=== PATIENT | female | born 1985 | race African-American/Black ===

== ENCOUNTER 2022-03-08 04:10 | Inpatient (IN) | payer OTHER ==
[2022-03-04 15:33] VITALS: BMI 23.8
[2022-03-08] MEDS ORDERED: CEFAZOLIN 2 GM in DEXTROSE 5%-WATER 100 ML IVPB ONE (06:30)
[2022-03-08 06:49] LABS: URINE APPEARANCE CLEAR; URINE BILIRUBIN NEGATIVE (NEGATIVE); URINE COLOR YELLOW; URINE GLUCOSE (UA) NEGATIVE (NEGATIVE); URINE KETONE NEGATIVE (NEGATIVE); URINE LEUK ESTERASE NEGATIVE (NEGATIVE); URINE NITRITE NEGATIVE (NEGATIVE); URINE PROTEIN NEGATIVE (NEGATIVE); URINE UROBILINOGEN 0.2 mg/dL (0.2-1.0)
[2022-03-08] MEDS ORDERED: ceFAZolin SODIUM 1 GM VIAL ONE (06:49)
[2022-03-08] MEDS ORDERED: MIDAZOLAM HCL 2 MG/2 ML SINGLE DOSE VIAL ONE (07:31)
[2022-03-08] MEDS ORDERED: PROPOFOL 20 ML ONE (07:31)
[2022-03-08] MEDS ORDERED: ROCURONIUM BROMIDE 50 MG/5 ML SYRINGE ONE (07:31)
[2022-03-08] MEDS ORDERED: BUPIVACAINE LIPOSOME/PF (EXPAREL) 266 MG/20 ML VIAL ONE (07:35)
[2022-03-08] MEDS ORDERED: BUPIVACAINE HCL/PF 0.25% (2.5MG/ML) 10 ML VIAL ONE (07:35)
[2022-03-08] MEDS ORDERED: ceFAZolin SODIUM 1 GM VIAL IVPB ONE (08:30)
[2022-03-08] MEDS ORDERED: ONDANSETRON 4 MG/2 ML VIAL ONE ×3 (08:49→09:45)
[2022-03-08] MEDS ORDERED: DEXAMETHASONE SOD PHOSPHATE 4 MG/1 ML VIAL ONE (08:49)
[2022-03-08] MEDS ORDERED: NEOSTIGMINE METHYLSULFATE 0.5 MG/ML - 10 ML MDV ONE (09:46)
[2022-03-08] MEDS ORDERED: ACETAMINOPHEN INJECTION 100 ML IVPB ONE (09:46)
[2022-03-08] MEDS ORDERED: GLYCOPYRROLATE 0.2 MG/1 ML VIAL ONE (09:46)
[2022-03-08] MEDS ORDERED: DOCUSATE SODIUM 100 MG CAPSULE (FP) PO PRN (09:57)
[2022-03-08] MEDS ORDERED: ONDANSETRON 4 MG/2 ML VIAL IVPUSH PRN ×2 (09:57→10:19)
[2022-03-08] MEDS ORDERED: BISACODYL 5 MG TABLET.DR (FP) PO PRN (09:57)
[2022-03-08] MEDS ORDERED: LACTATED RINGERS SOLUTION 1,000 ML IV SCH (10:30)
[2022-03-08] MEDS: SODIUM CHLORIDE 1,000 ML IV SCH ×2 (11:40→21:17)
[2022-03-08] MEDS: oxyCODONE HCL 5 MG TABLET PO PRN ×2 (13:44→19:43)
[2022-03-08] MEDS: CEFAZOLIN 1 GM in DEXTROSE 5%-WATER - 50 ML IVPB SCH ×2 (15:59→23:49)
[2022-03-08] MEDS: IBUPROFEN 800 MG/8 ML IJ IVPB SCH (16:00)
[2022-03-08] MEDS: SIMETHICONE 80 MG TAB.CHEW (FP) PO PRN (19:43)
[2022-03-08 19:47] LABS: HEMATOCRIT 30.6 % (32.4-45.2); HEMOGLOBIN 9.4 GM/dL (10.7-15.3); MCH 24.4 pg (25.7-33.7); MCHC 30.6 g/dl (32.0-36.0); MEAN CELL VOLUME 79.7 fl (80-96); MEAN PLT VOLUME 7.6 fl (7.5-11.1); PLATELET COUNT 334 10^3/uL (134-434); RBC 3.84 M/mm3 (3.60-5.2); RDW 15.9 % (11.6-15.6); WHITE BLOOD COUNT 10.5 K/mm3 (4.0-10.0)
[2022-03-08 20:12] LABS: CALCIUM 8.3 mg/dL (8.5-10.1)
[2022-03-08 20:13] LABS: BLOOD UREA NITROGEN 4.7 mg/dL (7-18)
[2022-03-09] MEDS: IBUPROFEN 800 MG/8 ML IJ IVPB SCH ×2 (00:47→08:26)
[2022-03-09 08:02] LABS: HEMATOCRIT 26.9 % (32.4-45.2); HEMOGLOBIN 8.3 GM/dL (10.7-15.3); MCH 24.5 pg (25.7-33.7); MCHC 30.9 g/dl (32.0-36.0); MEAN CELL VOLUME 79.4 fl (80-96); MEAN PLT VOLUME 7.2 fl (7.5-11.1); PLATELET COUNT 311 10^3/uL (134-434); RBC 3.39 M/mm3 (3.60-5.2); WHITE BLOOD COUNT 8.3 K/mm3 (4.0-10.0)
[2022-03-09 08:22] LABS: BLOOD UREA NITROGEN 4.5 mg/dL (7-18); CALCIUM 7.8 mg/dL (8.5-10.1)
[2022-03-09 08:25] LABS: CREATININE 0.7 mg/dL (0.55-1.3)
[2022-03-09] MEDS: SIMETHICONE 80 MG TAB.CHEW (FP) PO PRN ×2 (08:25→19:39)
[2022-03-09] MEDS ORDERED: BISACODYL 10 MG SUPP.RECT PR ONE (08:41)
[2022-03-09] MEDS: ENOXAPARIN NA (PORCINE) 40 MG/0.4 ML DISP.SYRIN SQ SCH (09:37)
[2022-03-09] MEDS: ACETAMINOPHEN 325 MG TABLET (FP) PO PRN (15:22)
[2022-03-09] MEDS: oxyCODONE HCL 5 MG TABLET PO PRN (19:40)
[2022-03-10] MEDS: oxyCODONE HCL 5 MG TABLET PO PRN (01:56)
[2022-03-10] MEDS: SIMETHICONE 80 MG TAB.CHEW (FP) PO PRN ×2 (01:58→11:55)
[2022-03-10] MEDS: ACETAMINOPHEN 325 MG TABLET (FP) PO PRN (09:18)
[2022-03-10] MEDS: ENOXAPARIN NA (PORCINE) 40 MG/0.4 ML DISP.SYRIN SQ SCH (09:18)
[2022-03-10] MEDS: AMOX TR/POT CLAV 875MG/125MG TABLETS (FP) PO SCH ×2 (10:29→21:26)
[2022-03-10] MEDS: KETOROLAC TROMETHAMINE 30 MG/1 ML VIAL IVPUSH SCH ×2 (10:29→17:57)
[2022-03-10 11:29] LABS: BASO % 0.3 % (0-2.0); EOS % 0.4 % (0-4.5); HEMATOCRIT 25.4 % (32.4-45.2); HEMOGLOBIN 7.8 GM/dL (10.7-15.3); LYMPH % 18.4 % (8-40); MCH 24.3 pg (25.7-33.7); MCHC 30.6 g/dl (32.0-36.0); MEAN CELL VOLUME 79.5 fl (80-96); MEAN PLT VOLUME 7.2 fl (7.5-11.1); MONO % 8.6 % (3.8-10.2); NEUT % 72.3 % (42.8-82.8); PLATELET COUNT 322 10^3/uL (134-434); RBC 3.19 M/mm3 (3.60-5.2); RDW 16.4 % (11.6-15.6); WHITE BLOOD COUNT 8.1 K/mm3 (4.0-10.0)
[2022-03-10] MEDS: ACETAMINOPHEN 500 MG TABLET (FP) PO PRN (23:04)
[2022-03-11 00:46] LABS: BASO % 0.6 % (0-2.0); EOS % 2.1 % (0-4.5); HEMATOCRIT 32.5 % (32.4-45.2); HEMOGLOBIN 10.6 GM/dL (10.7-15.3); LYMPH % 29.6 % (8-40); MCH 26.4 pg (25.7-33.7); MCHC 32.6 g/dl (32.0-36.0); MEAN CELL VOLUME 80.9 fl (80-96); MEAN PLT VOLUME 6.7 fl (7.5-11.1); MONO % 9.7 % (3.8-10.2); PLATELET COUNT 278 10^3/uL (134-434); RBC 4.01 M/mm3 (3.60-5.2); RDW 16.1 % (11.6-15.6); WHITE BLOOD COUNT 6.9 K/mm3 (4.0-10.0)
[2022-03-11 06:41] VITALS: TEMP 98.3
[2022-03-11] MEDS: AMOX TR/POT CLAV 875MG/125MG TABLETS (FP) PO SCH (11:08)
[2022-03-11] MEDS: ACETAMINOPHEN 500 MG TABLET (FP) PO PRN (11:08)
[2022-03-11] MEDS: SIMETHICONE 80 MG TAB.CHEW (FP) PO PRN (11:08)
[2022-03-11] MEDS: ENOXAPARIN NA (PORCINE) 40 MG/0.4 ML DISP.SYRIN SQ SCH (11:12)
[2022-03-11 11:49] VITALS: RESP 18
[2022-03-11 13:33] VITALS: BP 123/80; PULSE 83
== END 2022-03-11 14:20 | disposition home or self-care (01) | DRG 743 ==
LOC: JASUSAT 04:10 → EDSTATUS 08:00 → J2C 09:57 → J3W 12:04
PROVIDERS: ADMIT Obstetrics & Gynecology; ATTEND Obstetrics & Gynecology
PROC: 0UB00ZZ Excision of Right Ovary, Open Approach (ICD-10-PCS; 2022-03-08)
PROC: 0UB90ZZ Excision of Uterus, Open Approach (ICD-10-PCS; principal; 2022-03-08 08:00)
DX: D25.9 Leiomyoma of uterus, unspecified (principal); N92.0 Excessive and frequent menstruation with regular cycle; N94.6 Dysmenorrhea, unspecified; N83.201 Unspecified ovarian cyst, right side
CPT/HCPCS: 36415; 36430; 80048; 81003; 81025; 85025; 85027; 86850; 86900; 86901; 86922; 88305-TC; 88307-TC; 94010; 94760; P9058